=== PATIENT | male | born 1980 | race Caucasian/White ===

== ENCOUNTER 2017-11-13 03:14 | Day surgery (SDC) | payer SELFPAY ==
[2017-11-13] VITALS (10 sets, daily range): BP systolic 112–136; BP diastolic 63–82; PULSE 78–100; TEMP 97.9–98.2
[~2017-11-13] VITALS: Ht 175.3 cm; Wt 74.4 kg
[2017-11-13 03:55] LABS: BASO % 0.1 % (0.0-2.0); EOS # 0.1 (0.0-0.7); EOS % 0.5 % (0-4.0); GRAN # 10.8 (1.4-6.5); GRAN % 80.8 % (42.2-75.2); HEMOGLOBIN 15.9 g/dl (13.5-18.0); LYMPH # 1.8 (1.2-3.4); LYMPH % 13.1 % (20.0-51.0); MEAN CELL VOLUME 86 fl (80.0-100.0); MEAN CORPUSCULAR HEMOGLOBIN 30 pg (27.0-31.0); MEAN CORPUSCULAR HGB CONC 35 g/dl (33.0-37.0); MEAN PLATELET VOLUME 9.1 fl (7.4-10.4); MONO # 0.7 (0.1-0.6); MONO % 5.2 % (1.7-9.3); PLATELET COUNT 339 K/mm3 (130-400); RED BLOOD COUNT 5.23 M/mm3 (4.20-5.60); REDCELL DISTRIBUTION WIDTH-CV 12.7 % (11.5-14.5)
[2017-11-13 04:13] LABS: ALBUMIN 4.5 gm/dL (3.5-5.0); BILIRUBIN,TOTAL 1.3 mg/dL (0.0-1.0); C-REACTIVE PROTEIN 1.1 mg/dL (0.0-0.9); CALCIUM 8.9 mg/dL (8.4-10.2); CREATININE, serum 0.65 mg/dL (0.66-1.25); POTASSIUM 3.8 mmol/L (3.4-5.0); TOTAL PROTEIN 7.9 gm/dL (6.4-8.2)
== END 2017-11-13 15:18 | disposition home or self-care (01) ==
LOC: COL.ER 03:14 → SURG 05:40 → SDCO 05:40 → COL.ER 05:40 → SURG 05:40 → SDCO 15:18
PROVIDERS: Emergency Medicine
DX: K35.80 Unspecified acute appendicitis (principal)
CPT/HCPCS: OP; J0690; J1885; J2270; J2310; J2405; J2543; J2704; J7030; J7120; Q9967